=== PATIENT | female | born 1955 | race Caucasian/White ===

== ENCOUNTER 2018-10-15 13:08 | Outpatient (CLI) | payer OTHER ==
--- NOTE | 2018-10-15 13:36 | CONSULTATION NOTE ---
Information from patient questionnaire entered by Padmini Pichardo. I have reviewed and concur with the information entered by Padmini Pichardo. This document represents the service I personally performed and the decisions made by me, Hank Gardner MD, [facility]. - History of Present Illness Chief Complaint: Unrefreshed sleep, Excessive daytime sleepiness Sleepiness started just a year ago. The patient tells me that she normally goes to bed around 11:00 pm - 12:00 am, and it takes her approximately 15 minutes to fall asleep. She has been told that she snores loudly and irregularly at night. She has not been observed to stop breathing in her sleep. Her bed partner has to sleep in another room due to the loudness of her snoring. He uses a CPAP. She can recall waking up on the average of 2 times during the night. Most of the time she wakes up because of having to use the restroom. She has woken up from her own snore and gasping. There is not a lot of tossing and turning in her sleep. Generally she can recall having dreams. She usually wakes up at 12:00pm and does not feel refreshed. She usually does not have a morning headache. During the day she complains of feeling sleepy and fatigued. She has never fallen asleep while driving nor has any accident due to sleepiness. She usually naps during the day. If she naps, upon falling asleep during the day she admits to having vivid dreams. She reports having impaired concentration during the day. There is no somniloquy (sleep talking) or somnambulism (sleep walking). She has never experienced sleep paralysis, cataplexy, or symptoms of restless leg syndrome. [place] Sleepiness Scale Score: 8 - Past Medical History Past Medical History: Depression, GERD - Home Medications/Allergies Allergies Sulfa (Sulfonamide Antibiotics) Adverse Reaction (Unknown, Verified 10/15/18 13:10) Home Medications Cholecalciferol (Vitamin D3) [Vitamin D3] 1 cap ORAL DAILY 10/15/18 [History Confirmed 10/15/18] Cyanocobalamin (Vitamin B-12) [Vitamin B-12 (100mcg tab)] 1 tab ORAL DAILY 10/15/18 [History Confirmed 10/15/18] Escitalopram [Lexapro] 1 tab ORAL DAILY 10/15/18 [History Confirmed 10/15/18] Loratadine 10 mg PO DAILY 10/15/18 [History Confirmed 10/15/18] Venlafaxine ER [Effexor ER] 2 cap ORAL DAILY 10/15/18 [History Confirmed 10/15/18] raNITIdine [Zantac] 150 mg PO DAILY 10/15/18 [History Confirmed 10/15/18] - Social History The patient's occupation is retired. Patient is and lives in [place]. Patient drinks alcohol on the average of 1 - 2 drinks a week and drinks 1 cups of caffeinated beverages a day. Smoked in the past 12 months: No - Family History Family history of sleep disordered breathing: Yes Family Hx Sleep Apnea: Sibling: Snoring, Sleep apnea - Untreated - Review of Systems Weight gain over past 5 years: 25 Weight loss over past 5 years: 15 Cardiovascular: denies: high blood pressure, palpitations, chest pain, irregular heart rate or pulse, leg or foot swelling, have to sleep sitting up Respiratory: denies: shortness of breath, wheeze, sputum production, chronic cough Gastrointestinal: reports: heartburn. denies: difficulty swallowing, nausea, vomitting, diarrhea, abdominal pain Urinary: denies: incontinence, frequency, urgency, impotence, other: Neurological: denies: headaches, seizure, head trauma, disorientation, speech dysfunction, gait or balance problems, fainting or unconsciousness, other: Psychiatric: reports: depression Ear/Nose/Throat: reports: nasal congestion, sinus problems, injury to nose, tonsillectomy, wisdom teeth removed Endocrine: denies: thyroid disease, history of goiter, sluggishness, too hot or cold, excessive thirst, increased appetite, increased urination, unexplained weakness, other: Musculoskeletal: denies: joint pain, neck pain, back pain, joint swelling, muscle pain or cramping, mobility problems, other: Immunologic: reports: sneezing - Physical Examination HEENT: No craniofacial malformation Nostrils: patent to airflow Turbinates: normal Septum: midline Mouth and throat: narrow oropharynx Soft palate: normal Hard palate: normal Uvula: normal Tongue: normal in size Tonsils: absent bilaterally Chin and jaw: Retrognathia Neck: normal w/o lymphadenopathy or thyromegaly Heart: regular rate and rhythm Lungs: clear bilaterally Abdomen: soft, non-tender Extremities: no edema or clubbing Neurologic: intact, no focal deficits - Impression 1. Suspected Obstructive Sleep Apnea-Hypopnea Syndrome, as suggested by a history of loud and irregular snoring, gasping or choking in sleep, unrefreshed sleep, and excessive daytime sleepiness. Narrow oropharynx and obesity are common predisposing factors for obstructive sleep apnea-hypopnea syndrome. I recommend proceeding to polysomnography to confirm the diagnosis and to assess severity. I informed the patient of what the sleep studies involve and after some discussion, obtained agreement to proceed. The pathophysiology of obstructive sleep apnea-hypopnea syndrome was discussed with the patient and health risks of cardiovascular and cerebrovascular disease if not treated. - Plan Schedule polysomnography and return in 1-2 weeks after the study to discuss result and initiate therapy. Avoid long distance driving or driving when feeling sleepy. Avoid alcohol, sedative and muscle relaxant around bedtime. Attempt to lose weight. Review instructions provided by trained office staff on how to prepare for the sleep study. Return for follow-up after sleep study completed. I spent 100% of this 25 minute visit face to face with the patient with greater than 50% of this was spent time counseling the patient and coordination of care.
== END 2018-10-15 13:09 | disposition home or self-care (01) ==
LOC: SC 13:08
PROVIDERS: ATTEND Internal Medicine Pulmonary Disease
DX: G47.10 Hypersomnia, unspecified (principal); R06.83 Snoring; G47.8 Other sleep disorders
CPT/HCPCS: 99203; 99212

== ENCOUNTER 2019-02-07 15:00 | Emergency (ER) | payer OTHER ==
--- NOTE | 2019-02-07 15:14 | ED Physician Documentation ---
History of Present Illness - Stated complaint Stated Complaint: LT FOOT SWELLING / GLF - Chief complaint Chief Complaint: Ext Problem - Additonal information Additional information: This is a 63-year-old female with history of depression who presents with pain in her left foot. Patient was walking and tripped over her poodle and landed on her left foot, she had immediate pain in the area, she has developed some bruising there as well. She had difficulty bearing weight on her foot since the time. She took Aleve at 8 AM this morning. She denies any trauma elsewhere did not lose consciousness. Review of Systems Skin: reports: Other (Bruising over left foot) Musculoskeletal: reports: Extremity pain Neurologic: denies: Generalized weakness PD PAST MEDICAL HISTORY - Past Medical History Psych: Depression - Present Medications Home Medications: Ambulatory Orders Medication Instructions Recorded Confirmed Cholecalciferol (Vitamin D3) 1 cap ORAL DAILY 10/15/18 10/15/18 [Vitamin D3] Cyanocobalamin (Vitamin B-12) 1 tab ORAL DAILY 10/15/18 10/15/18 [Vitamin B-12 (100mcg tab)] Escitalopram [Lexapro] 1 tab ORAL DAILY 10/15/18 10/15/18 Loratadine 10 mg PO DAILY 10/15/18 10/15/18 Venlafaxine ER [Effexor ER] 2 cap ORAL DAILY 10/15/18 10/15/18 raNITIdine [Zantac] 150 mg PO DAILY 10/15/18 10/15/18 Oxycodone HCl/Acetaminophen 1 - 2 each PO Q6H PRN #10 tablet 02/07/19 [Percocet 5-325 mg Tablet] - Allergies Allergies/Adverse Reactions: Allergies Allergy/AdvReac Type Severity Reaction Status Date / Time Sulfa (Sulfonamide AdvReac Unknown Rash Verified 02/07/19 15:07 Antibiotics) - Living Situation Living Arrangement: reports: At home - Family History Family history: reports: Non contributory PD ED PE NORMAL - Vitals Vital signs reviewed: Yes - General General: Alert and oriented X 3, No acute distress - HEENT HEENT: Atraumatic - Cardiac Cardiac: Strong equal pulses - Respiratory Respiratory: No respiratory distress - Derm Derm: Warm and dry - Extremities Extremities: Other (Bruising over the left lateral midfoot on the dorsal surface. There is tenderness palpation the region of the fifth metatarsal. Patient able to wiggle all toes, sensation is intact over the distal extremity. Brisk capillary refill. No ankle or heel or tibia/fibula tenderness) - Neuro Neuro: Alert and oriented X 3 - Psych Psych: Normal mood, Normal affect Results - Vitals Vitals: Vital Signs - 24 hr 02/07/19 02/07/19 15:05 17:23 Temperature 37 C 37 C Heart Rate 100 89 Respiratory 20 16 Rate Blood Pressure 132/81 H 144/97 H O2 Saturation 97 98 Oxygen O2 Source Room air - Rads (name of study) Foot XR L Radiology: Other (Fractures of the 4th and 5th metatarsals.) Procedures - Splint (location) Lower extremity left Splint applied by: Tech Type of splint: Short leg, Posterior Other: Patient tolerated well, Neurovascular intact, Crutches provided PD MEDICAL DECISION MAKING - ED course Complexity details: considered differential (fracture, contusion, dislocation) ED course: Pt has isolated bruising and pain to her left foot. Limb is neurovascularly intact. XR shows Fractures of the fourth and fifth metatarsals, with minimal displacement. A posterior short leg splint was placed, patient was given crutches. I discussed that she should be nonweightbearing until she follows up with orthopedics. I discussed also that she should have repeat x-rays in 1 week, given that she has multiple fractures she may need surgery, but this will be a discussion to have with her orthopedist. She has [employer] insurance, and she may need a referral through her primary care try to see an orthopedist, she will call as soon as possible to arrange this, and she understands that follow-up within a week is ideal in case she does need surgery. I prescribed her a small number of Percocet for breakthrough pain, with instructions to avoid using narcotic medications if nonnarcotic medications are adequately controlling her pain. Patient agrees with this plan and was discharged home. Departure - Departure Disposition: 01 Home, Self Care Clinical Impression: Metatarsal fracture Condition: Good Instructions: ED Fx Foot Follow-Up: Austin Velázquez MD [Provider Admit Priv/Credential] - Within 1 week Prescriptions: Oxycodone HCl/Acetaminophen [Percocet 5-325 mg Tablet] 1 - 2 each PO Q6H PRN #10 tablet PRN Reason: pain Comments: You Broke 2 bones in your left foot. Please use the crutches and avoid putting any weight on your foot until you follow-up with the orthopedist. Try controlling your pain with nonnarcotic medication such as ibuprofen and Tylenol, if it is not effective you may use the Percocet. If you are developing numbness or severe pain in your foot please return to the emergency department for reevaluation. He should follow-up with an orthopedic doctor or [facility] within 1 week for repeat x-rays and to discuss whether surgery is needed Do not drink alcohol or drive while taking narcotic pain medication. Note that many narcotic pain relievers also contain Tylenol/acetaminophen. Plea se ensure that your total dose of acetaminophen from all sources does not exceed 3 g (3000 mg) per day. You may get constipated while on this medication. Take a stool softener such as Colace twice a day while you are on it. Also add an [id number]-wfc-[id number] laxative such as senna or MiraLAX on any day that you do not have a bowel movement. If you received a narcotic pain medication or sedative while in the emergency department, do not drive for the next 24 hours. Discharge Date/Time: 02/07/19 17:23
[2019-02-07] MEDS ORDERED: ACETAMINOPHEN 325 MG TABLET PO STA (15:22)
[2019-02-07] MEDS ORDERED: IBUPROFEN 600 MG TABLET PO STA (15:22)
--- NOTE | 2019-02-07 15:56 | XRAY Report ---
Reason: Pain in lateral left foot after fall Procedure Date: 02/07/2019 Accession Number: [id number] / [id number] Procedure: XR - Foot 3 View LT CPT Code: FULL RESULT: EXAM: LEFT FOOT RADIOGRAPHY EXAM DATE: 02/07/2019 03:32 PM. CLINICAL HISTORY: Pain in lateral left foot after fall. COMPARISON: None. TECHNIQUE: 3 views. FINDINGS: Bones: There are oblique nondisplaced fractures of the distal diaphyses of the fourth and fifth metatarsals. No fractures detected elsewhere. Joints: . No subluxations. Soft Tissues: No radiopaque foreign bodies. IMPRESSION: Fractures of the distal fourth and fifth metatarsals. RADIA
[2019-02-07 17:25] VITALS: BP 144/97
== END 2019-02-07 17:23 | disposition home or self-care (01) ==
LOC: ED 15:00
DX: S92.345A Nondisplaced fracture of fourth metatarsal bone, left foot, initial encounter for closed fracture (principal); S92.355A Nondisplaced fracture of fifth metatarsal bone, left foot, initial encounter for closed fracture; W18.41XA Slipping, tripping and stumbling without falling due to stepping on object, initial encounter
CPT/HCPCS: 29125; 73630; 99283; 99284; A9270

== ENCOUNTER 2019-03-06 19:37 | Outpatient (CLI) | payer OTHER | END 2019-03-06 19:38 | disposition home or self-care (01) | LOC: SC 19:37 | PROVIDERS: ATTEND Internal Medicine Pulmonary Disease | DX: G47.33 Obstructive sleep apnea (adult) (pediatric) (principal); G47.61 Periodic limb movement disorder | CPT/HCPCS: 95810 ==

== ENCOUNTER 2020-03-23 07:56 | Day surgery (SDC) | payer OTHER ==
[2020-03-23] MEDS ORDERED: LACTATED RINGERS 1,000 ML IV ONE (08:20)
[2020-03-23] MEDS ORDERED: fentaNYL 100 MCG/2 ML VIAL IVP ONE (09:17)
[2020-03-23] MEDS ORDERED: MIDAZOLAM 2 MG/2 ML VIAL IVP ONE (09:17)
[2020-03-23] MEDS ORDERED: LACTATED RINGERS 500 ML IV ONE (09:50)
[2020-03-23 10:45] VITALS: BP 124/86
== END 2020-03-23 07:57 | disposition home or self-care (01) ==
LOC: SDS 07:56
PROVIDERS: ATTEND Surgery
PROC: 0DBL8ZZ Excision of Transverse Colon, Via Natural or Artificial Opening Endoscopic (ICD-10-PCS; principal; 2020-03-23 09:00)
DX: D12.3 Benign neoplasm of transverse colon (principal); K63.5 Polyp of colon; K59.00 Constipation, unspecified; F32.9 Major depressive disorder, single episode, unspecified

== ENCOUNTER 2020-09-27 21:16 | Outpatient (CLI) | payer OTHER | END 2020-09-27 21:17 | disposition EMS.NT | LOC: EMS 21:16 | DX: Z03.89 Encounter for observation for other suspected diseases and conditions ruled out (principal); M25.521 Pain in right elbow; M25.511 Pain in right shoulder ==

== ENCOUNTER 2020-09-27 22:20 | Emergency (ER) | payer OTHER ==
[2020-09-27 22:33] VITALS: BP 118/66
--- OUTSIDE RECORDS SUMMARY | 2020-09-27 22:39 | EXTERNAL MEDICAL SUMMARY RPT | Continuity of Care Document ---
:1955 Demographics Phone Unavailable Preferred Language Unknown Marital Status Unknown Zoroastrianism Affiliation Unknown Race Unknown Ethnic Group Unknown Author Organization [facility] Address [address] [phone] Phone Allergies Encounters Medications Problems Results
--- NOTE | 2020-09-28 00:12 | ED Physician Documentation ---
PD HPI Fall - Stated complaint Stated Complaint: FALL, RT ARM INJURY - Chief complaint Chief Complaint: Ext Problem - History obtained from History obtained from: Patient, Family - History of Present Illness Mechanism of injury: Other (pulled by dog) Fall distance: Standing position Where injury occurred: Street Timing - onset: Today Injury(ies) location: Right Upper Extremity Quality of pain: Pain Associated symptoms: No: LOC, AMS, Amnesia Symptoms improve with: Rest Worsens with: Movement, Palpation Contributing factors: No: Anticoagulated Similar symptoms before: Has not had sx before Recently seen: Not recently seen - Additional information Additional information: 64-year-old female was walking her dog the dog saw another animal and lunged for the other dog and pulled her down. She landed on her elbow and she has pain in her elbow and her arm. She has pain referred to her arm with any movement of the elbow. She does not have pain in her wrist. She has not otherwise been ill. Review of Systems Constitutional: denies: Fever Eyes: denies: Decreased vision Ears: denies: Ear pain Nose: denies: Congestion Throat: denies: Sore throat Respiratory: denies: Cough GI: denies: Abdominal Pain, Nausea, Vomiting : denies: Dysuria, Frequency Skin: denies: Rash Musculoskeletal: reports: Extremity pain. denies: Neck pain, Back pain, Joint pain, Extremity swelling Neurologic: denies: Generalized weakness, Focal weakness, Numbness PD PAST MEDICAL HISTORY - Past Medical History Past Medical History: Yes Cardiovascular: None Respiratory: Sleep apnea Endocrine/Autoimmune: None GI: GERD : None HEENT: Chronic vision loss Psych: Depression Musculoskeletal: None Derm: None - Past Surgical History Past Surgical History: Yes General: Appendectomy, Colonoscopy /[employer]ATIONS: Other HEENT: Tonsil/Adenoidectomy - Present Medications Home Medications: Ambulatory Orders Medication Instructions Recorded Confirmed Cholecalciferol (Vitamin D3) 1 cap ORAL DAILY 10/15/18 09/27/20 [Vitamin D3] Cyanocobalamin (Vitamin B-12) 1 tab ORAL DAILY 10/15/18 09/27/20 [Vitamin B-12 (100mcg tab)] Loratadine 10 mg PO DAILY 10/15/18 09/27/20 Fluoxetine HCl [Prozac] 4,060 mg PO DAILY 03/22/20 09/27/20 - Allergies Allergies/Adverse Reactions: Allergies Allergy/AdvReac Type Severity Reaction Status Date / Time Sulfa (Sulfonamide AdvReac Intermediate Hives Verified 09/27/20 22:33 Antibiotics) - Social History Does the pt smoke?: No Smoking Status: Never smoker Does the pt drink ETOH?: No Does the pt have substance abuse?: No - Immunizations Immunizations are current?: Yes PD ED PE NORMAL - Vitals Vital signs reviewed: Yes (normal ) - General General: Alert and oriented X 3, No acute distress, Well developed/nourished - HEENT HEENT: Atraumatic, PERRL, EOMI - Neck Neck: Supple, no meningeal sign, No bony TTP - Respiratory Respiratory: No respiratory distress - Derm Derm: Normal color, Warm and dry, No rash - Extremities Extremities: No deformity, Other (There is tenderness to the right humerus midshaft and to the right shoulder. There is tenderness to the right elbow over the olecranon and there is an abrasion to this area. There is no specific tenderness over the radial head. Pain is referred to the humerus with flex/ext of the elvbow. ) - Neuro Neuro: Alert and oriented X 3, tuber helper 2-12 intact, No motor deficit, No sensory deficit, Normal speech Eye Opening: Spontaneous Motor: Obeys Commands Verbal: Oriented GCS Score: 15 - Psych Psych: Normal mood, Normal affect Results - Vitals Vitals: Vital Signs - 24 hr 09/27/20 09/27/20 22:29 23:11 Temperature 36.2 C L 36.2 C L Heart Rate 85 85 Respiratory 18 18 Rate Blood Pressure 118/66 118/66 O2 Saturation 98 98 Oxygen O2 Source Room air PD MEDICAL DECISION MAKING - ED course Complexity details: reviewed results, re-evaluated patient, considered differential, d/w patient, d/w family ED course: 64-year-old female with a fall onto her right olecranon has an abrasion to the olecranon and pain in the humerus. She is administered Toradol IM and x-rays were obtained of the humerus and elbow. There is evidence of a nondisplaced fracture of the greater tuberosit of the right shoulder and the patient is placed into a sling and will follow up with orthopedics. Departure - Departure Disposition: 01 Home, Self Care Clinical Impression: Fracture of greater tuberosity of humerus Qualifiers: Encounter type: initial encounter Fracture type: closed Fracture alignment: nondisplaced Laterality: right Qualified Code(s): S42.254A - Nondisplaced fracture of greater tuberosity of right humerus, initial encounter for closed fracture Condition: Stable Follow-Up: Willam Suh MD [Provider Admit Priv/Credential] -
[2020-09-28] MEDS ORDERED: KETOROLAC 60 MG/2 ML VIAL IM STA (01:00)
[2020-09-28] MEDS ORDERED: KETOROLAC 60 MG/2 ML VIAL IM ONE (01:09)
--- NOTE | 2020-09-28 08:11 | XRAY Report ---
PROCEDURE: Elbow 3 View RT INDICATIONS: fall elbow pain TECHNIQUE: 3 views of the elbow were acquired. COMPARISON: None. FINDINGS: Bones: No fractures or dislocations. No suspicious bony lesions. Soft tissues: No elbow joint effusion. No suspicious soft tissue calcifications. IMPRESSION: No acute osseous abnormality. No significant discrepancy with the preliminary interpretation. Reviewed by: Anita Mattson MD on 09/28/2020 8:10 AM PDT Approved by: Anita Mattson MD on 09/28/2020 8:10 AM PDT Station ID: [id number]
--- NOTE | 2020-09-28 08:13 | XRAY Report ---
PROCEDURE: Humerus RT INDICATIONS: fall midshaft pain TECHNIQUE: 2 views of the humerus were acquired. COMPARISON: None. FINDINGS: Bones: There is a nondisplaced fracture humeral head involving the greater tuberosity. No suspicious bony lesions. Soft tissues: No suspicious soft tissue calcifications. IMPRESSION: Displaced greater tuberosity fracture. No significant discrepancy with the preliminary interpretation. Reviewed by: Anita Mattson MD on 09/28/2020 8:12 AM PDT Approved by: Anita Mattson MD on 09/28/2020 8:12 AM PDT Station ID: [id number]
== END 2020-09-28 04:41 | disposition home or self-care (01) ==
LOC: ED 22:20
DX: S42.254A Nondisplaced fracture of greater tuberosity of right humerus, initial encounter for closed fracture (principal); W18.30XA Fall on same level, unspecified, initial encounter; Y93.K1 Activity, walking an animal; Y92.410 Unspecified street and highway as the place of occurrence of the external cause
CPT/HCPCS: 96372; 99283; 99284

== ENCOUNTER 2020-10-22 14:15 | Outpatient (CLI) | payer OTHER ==
--- NOTE | 2020-10-22 16:41 | DEXA Report ---
PROCEDURE: Dexa Spine and/or Hip INDICATIONS: POSTMENOPAUSAL TECHNIQUE: Dual energy x-ray absorptiometry (DXA) was performed on a [employer] System. Regions measur ed are the AP Spine, femoral neck, and if needed forearm. COMPARISON: None. FINDINGS: Lumbar Spine: Bone Mineral Density 1.00 to g/cm/cm,T score -1.5, osteopenia Left Hip: Bone Mineral Density 0.762 g/cm/cm,T score -2.0, osteopenia Left Femoral Neck: Bone Mineral Density 0.702 g/cm/cm, T score -2.4, osteopenia (T score greater or equal to -1.0: NORMAL) (T score from -1.1 to -2.4: OSTEOPENIA) (T score less than or equal to -2.5 to: OSTEOPOROSIS) Impression: Bone mineral density consistent with osteopenia Patients with diagnosis of osteoporosis or osteopenia should have regular bone mineral density assess ment. For those eligible for Medicare, routine testing is allowed once every 2 years. Testing frequ ency can be increased for patients who have rapidly progressing disease or for those who are receivin g medical therapy to restore bone mass. Reviewed by: Amandeep Michel on 10/22/2020 4:39 PM PDT Approved by: mAandeep Michel on 10/22/2020 4:39 PM PDT Station ID: [id number]
== END 2020-10-22 14:16 | disposition home or self-care (01) ==
LOC: DI 14:15
PROVIDERS: ATTEND Nurse Practitioner Family
DX: M85.89 Other specified disorders of bone density and structure, multiple sites (principal)

== ENCOUNTER 2020-11-24 08:31 | Outpatient (CLI) | payer OTHER ==
[2020-11-24 16:37] LABS: ALBUMIN 4.3 g/dL (3.2-5.5); ALBUMIN/GLOBULIN RATIO 1.5 (1.0-2.2); ALKALINE PHOSPHATASE 73 IU/L (42-121); ALT ALANINE AMINOTRANSFERASE 23 IU/L (10-60); AST ASPARTATE AMINOTRANSFERASE 19 IU/L (10-42); BILIRUBIN,TOTAL 0.9 mg/dL (0.2-1.0); BUN - BLOOD UREA NITROGEN 23 mg/dL (6-20); CALCIUM 9.3 mg/dL (8.5-10.3); CARBON DIOXIDE - CO2 27 mmol/L (21-32); CHLORIDE 100 mmol/L (101-111); CHOL/HDL RATIO 3.2 (<4.4); CHOLESTEROL 270 mg/dL; CREATININE 0.7 mg/dL (0.4-1.0); GFR - MDRD 85 (>89); GLUCOSE 92 mg/dL (70-100); HDL CHOLESTEROL 85 mg/dL; LDL CHOLESTEROL,CALCULATED 152 mg/dL; LDL/HDL RATIO 1.8 (<4.4); POTASSIUM 4.3 mmol/L (3.5-5.0); SODIUM 136 mmol/L (135-145); TOTAL PROTEIN 7.1 g/dL (6.7-8.2); TRIGLYCERIDES 166 mg/dL; VLDL CHOLESTEROL 33 mg/dL
== END 2020-11-24 08:32 | disposition home or self-care (01) ==
LOC: LAB.S 08:31
PROVIDERS: ATTEND Nurse Practitioner Family
DX: E78.2 Mixed hyperlipidemia (principal)
CPT/HCPCS: 36415; 80053; 80061; 83721

== ENCOUNTER 2022-09-28 15:49 | Outpatient (CLI) | payer OTHER ==
--- NOTE | 2022-09-28 17:05 | XRAY Report ---
PROCEDURE: Knee 3 View RT INDICATIONS: R KNEE PAIN TECHNIQUE: 3 views of the right knee(s) were acquired. COMPARISON: None. FINDINGS: Bones: No fractures or dislocations. No suspicious bony lesions. Tricompartmental joint space elenita rowing with associated osteophytosis. Soft tissues: Small knee joint effusion. No suspicious soft tissue calcifications or masses. IMPRESSION: No acute bony abnormality. Small knee joint effusion. Tricompartmental osteoarthritis. Kellgren-Siddharth scale of osteoarthritis: 2 Reviewed by: Rob Castro on 09/28/2022 5:03 PM PDT Approved by: Rob Castro on 09/28/2022 5:03 PM PDT Station ID: [id number]
== END 2022-09-28 15:50 | disposition home or self-care (01) ==
LOC: DI.S 15:49
PROVIDERS: ATTEND Nurse Practitioner Family
DX: M17.11 Unilateral primary osteoarthritis, right knee (principal); M25.461 Effusion, right knee

== ENCOUNTER 2023-10-20 08:00 | Outpatient (CLI) | payer MEDICARE | END 2023-10-20 23:59 | disposition home or self-care (01) | LOC: LAB.S 08:00 | PROVIDERS: ATTEND Emergency Medicine | DX: J20.9 Acute bronchitis, unspecified (principal) ==

== ENCOUNTER 2023-10-20 08:00 | Outpatient (CLI) | payer MEDICARE, OTHER ==
--- NOTE | 2023-10-21 16:01 | XRAY Report ---
PROCEDURE: Chest 2V INDICATIONS: BRONCHITIS TECHNIQUE: 2 views of the chest were acquired. COMPARISON: None. FINDINGS: Surgical changes and devices: Surgical clips in the right breast. Lungs and pleura: No pleural effusions or pneumothorax. Mild bilateral perihilar bronchial wall thic kening. No focal pulmonary consolidation. Linear atelectasis/scar in the lingula. Mediastinum: Mediastinal contours appear normal. Heart size is normal. Bones and chest wall: No suspicious bony lesions. Overlying soft tissues appear unremarkable. Mild degenerative changes of the spine. IMPRESSION: Mild bilateral perihilar bronchial wall thickening suggestive of reactive airways disease and/or sonja l pneumonia. No focal pulmonary consolidation. Reviewed by: Keshav Sebastian MD on 10/21/2023 3:59 PM PDT Approved by: Keshav Sebastian MD on 10/21/2023 3:59 PM PDT Station ID: [id number]
== END 2023-10-20 23:59 | disposition home or self-care (01) ==
LOC: DI.S 08:00
PROVIDERS: ATTEND Emergency Medicine
DX: J20.9 Acute bronchitis, unspecified (principal)